=== PATIENT | female | born 1960 | race Caucasian/White ===

== ENCOUNTER 2019-11-29 13:15 | Emergency (ER) | payer OTHER ==
[2019-11-29] MEDS ORDERED: SODIUM CHLORIDE 0.9% 1,000 ML IV ONE ×2 (13:26)
[2019-11-29] MEDS ORDERED: KETOROLAC 30 MG/ML 1 ML VIAL IVP STA (13:26)
[2019-11-29] MEDS ORDERED: ONDANSETRON 4 MG/2 ML VIAL IVP STA (13:26)
[2019-11-29] MEDS ORDERED: HYDROmorphone 1 MG/ML 1 ML SYRINGE IVP STA (13:27)
--- NOTE | 2019-11-29 13:49 | ED ---
Female Urogenital HPI - General Source: patient, family, RN notes reviewed, old records reviewed Mode of arrival: ambulatory Limitations: no limitations <Elaine Nagel - Last Filed: 11/29/19 14:37> <Natalio Rodríguez - Last Filed: 11/29/19 15:28> - General Chief complaint: Urogenital Stated complaint: Kidney stone Time Seen by Provider: 11/29/19 13:23 - History of Present Illness Initial comments: Beverly is a 59-year-old female presents emergency Department with onset of hematuria and left flank pain. Symptoms started around midnight last night the pain went away. She reports that this morning upon awakening it seemed to recur. She states that she has had a history of kidney stones in the past quite some time. She reports that her previous kidney stones did not require surgery for removal. Patient reports no diarrhea. She does complain of some nausea. (Elaine Nagel) - Related Data Home Medications Medication Instructions Recorded Confirmed Atenolol [Tenormin] 25 mg PO DAILY 02/05/15 11/29/19 FLUoxetine HCL [PROzac] 20 mg PO DAILY 02/05/15 11/29/19 LORazepam [Ativan] 0.5 mg PO HS 02/05/15 11/29/19 Aspirin EC [Ecotrin Low Dose] 81 mg PO DAILY 11/29/19 11/29/19 Atorvastatin [Lipitor] 80 mg PO HS 11/29/19 11/29/19 Cholecalciferol [Vitamin D3 (25 2,000 unit PO DAILY 11/29/19 11/29/19 Mcg = 1000 Iu)] Folic Acid 0.8 mg PO DAILY 11/29/19 11/29/19 Previous Rx's Medication Instructions Recorded Ketorolac [Toradol] 10 mg PO Q6HR PRN #15 tab 11/29/19 Metoclopramide HCl [Reglan] 10 mg PO Q6HR PRN #15 tablet 11/29/19 Potassium Chloride ER [K-Dur 20] 20 meq PO BID #8 tab 11/29/19 Allergies Allergy/AdvReac Type Severity Reaction Status Date / Time No Known Allergies Allergy Verified 11/29/19 14:27 Review of Systems ROS Other: All systems not noted in ROS Statement are negative. <Elaine Nagel - Last Filed: 05/07/20 14:37> ROS Other: All systems not noted in ROS Statement are negative. <Natalio Rodríguez - Last Filed: 11/29/19 15:28> ROS Statement: Those systems with pertinent positive or pertinent negative responses have been documented in the HPI. Past Medical History Past Medical History: Hyperlipidemia, Hypertension History of Any Multi-Drug Resistant Organisms: None Reported Past Surgical History: Hysterectomy, Orthopedic Surgery Additional Past Surgical History / Comment(s): lap band Past Psychological History: Anxiety, Depression Smoking Status: Never smoker Past Alcohol Use History: Occasional Past Drug Use History: None Reported <Elaine Nagel - Last Filed: 11/29/19 14:37> General Exam Limitations: no limitations General appearance: alert, in no apparent distress Head exam: Present: atraumatic, normocephalic, normal inspection Eye exam: Present: normal appearance, PERRL, EOMI. Absent: scleral icterus, conjunctival injection, periorbital swelling ENT exam: Present: normal exam, mucous membranes moist Neck exam: Present: normal inspection. Absent: tenderness, meningismus, lymphadenopathy Respiratory exam: Present: normal lung sounds bilaterally. Absent: respiratory distress, wheezes, rales, rhonchi, stridor Cardiovascular Exam: Present: regular rate, normal rhythm, normal heart sounds. Absent: systolic murmur, diastolic murmur, rubs, gallop, clicks GI/Abdominal exam: Present: soft, tenderness (Left CVA tenderness), normal bowel sounds. Absent: distended, guarding, rebound, rigid Extremities exam: Present: normal inspection Back exam: Present: normal inspection Neurological exam: Present: alert, oriented X3, CN II-XII intact Psychiatric exam: Present: normal affect, normal mood <Elaine Nagel - Last Filed: 11/29/19 14:37> Course <Elaine Nagel - Last Filed: 11/29/19 14:37> Vital Signs 11/29/19 11/29/19 11/29/19 13:16 14:01 14:37 Temperature 98.0 F Pulse Rate 98 69 83 Respiratory 20 18 18 Rate Blood Pressure 157/84 146/73 135/79 O2 Sat by Pulse 100 100 98 Oximetry - Reevaluation(s) Reevaluation #1: 11/29/19 14:[address] Rodríguez at 2:30 PM (Elaine Nagel) Medical Decision Making - Lab Data Result diagrams: 11/29/19 13:34 11/29/19 13:34 <Elaine Nagel - Last Filed: 11/29/19 14:37> - Lab Data Result diagrams: 11/29/19 13:34 11/29/19 13:34 - Radiology Data Radiology results: report reviewed (Computed tomography scan of the abdomen pelvis shows obstructive uropathy left upper uterus. Moderate hydronephrosis. There is also a deception and proximal lower abdomen to the gastric antrum.), image reviewed (KUB shows proximal he 5 Casanova calculi left ureter.) <Natalio Rodríguez - Last Filed: 11/29/19 15:28> - Medical Decision Making Patient was reevaluated by myself, Dr. Rodríguez. Patient resting comfortably in bed. Abdomen soft and nontender. Patient states she feels much better. Case was crusted detail with Dr. Giles who did review the films. He feels patient would benefit from endoscopy however this can be done as an outpatient. Patient is updated regarding this as well. Patient is additionally updated regarding potassium level and need to follow-up with both of these as well as urology regarding kidney stone. (Natalio Rodríguez) - Lab Data Lab Results 11/29/19 11/29/19 11/29/19 Range/Units 13:34 13:34 13:34 WBC 6.3 (3.8-10.6) k/uL RBC 4.64 (3.80-5.40) m/uL Hgb 14.4 (11.4-16.0) gm/dL Hct 42.5 (34.0-46.0) % MCV 91.6 (80.0-100.0) fL MCH 31.0 (25.0-35.0) pg MCHC 33.9 (31.0-37.0) g/dL RDW 12.5 (11.5-15.5) % Plt Count 321 (150-450) k/uL Neutrophils % 57 % Lymphocytes % 31 % Monocytes % 7 % Eosinophils % 3 % Basophils % 1 % Neutrophils # 3.6 (1.3-7.7) k/uL Lymphocytes # 1.9 (1.0-4.8) k/uL Monocytes # 0.4 (0-1.0) k/uL Eosinophils # 0.2 (0-0.7) k/uL Basophils # 0.0 (0-0.2) k/uL PT 9.7 (9.0-12.0) sec INR 0.9 (<1.2) APTT 21.1 L (22.0-30.0) sec Sodium 138 (137-145) mmol/L Potassium 2.9 L (3.5-5.1) mmol/L Chloride 105 (98-107) mmol/L Carbon Dioxide 21 L (22-30) mmol/L Anion Gap 12 mmol/L BUN 14 (7-17) mg/dL Creatinine 1.03 (0.52-1.04) mg/dL Est GFR (CKD-EPI)AfAm 68 (>60 ml/min/1.73 sqM) Est GFR (CKD-EPI)NonAf 59 (>60 ml/min/1.73 sqM) Glucose 121 H (74-99) mg/dL Calcium 9.8 (8.4-10.2) mg/dL Total Bilirubin 0.5 (0.2-1.3) mg/dL AST 29 (14-36) U/L ALT 23 (4-34) U/L Alkaline Phosphatase 119 (38-126) U/L Total Protein 7.4 (6.3-8.2) g/dL Albumin 4.4 (3.5-5.0) g/dL Urine Color Urine Appearance (Clear) Urine pH (5.0-8.0) Ur Specific [place] (1.001-1.035) Urine Protein (Negative) Urine Glucose (UA) (Negative) Urine Ketones (Negative) Urine Blood (Negative) Urine Nitrite (Negative) Urine Bilirubin (Negative) Urine Urobilinogen (<2.0) mg/dL Ur Leukocyte Esterase (Negative) Urine RBC (0-5) /hpf Urine WBC (0-5) /hpf Ur Squamous Epith Cells (0-4) /hpf Calcium Oxalate Crystal (None) /hpf Urine Bacteria (None) /hpf Urine Mucus (None) /hpf 11/29/19 Range/Units 14:36 WBC (3.8-10.6) k/uL RBC (3.80-5.40) m/uL Hgb (11.4-16.0) gm/dL Hct (34.0-46.0) % MCV (80.0-100.0) fL MCH (25.0-35.0) pg MCHC (31.0-37.0) g/dL RDW (11.5-15.5) % Plt Count (150-450) k/uL Neutrophils % % Lymphocytes % % Monocytes % % Eosinophils % % Basophils % % Neutrophils # (1.3-7.7) k/uL Lymphocytes # (1.0-4.8) k/uL Monocytes # (0-1.0) k/uL Eosinophils # (0-0.7) k/uL Basophils # (0-0.2) k/uL PT (9.0-12.0) sec INR (<1.2) APTT (22.0-30.0) sec Sodium (137-145) mmol/L Potassium (3.5-5.1) mmol/L Chloride (98-107) mmol/L Carbon Dioxide (22-30) mmol/L Anion Gap mmol/L BUN (7-17) mg/dL Creatinine (0.52-1.04) mg/dL Est GFR (CKD-EPI)AfAm (>60 ml/min/1.73 sqM) Est GFR (CKD-EPI)NonAf (>60 ml/min/1.73 sqM) Glucose (74-99) mg/dL Calcium (8.4-10.2) mg/dL Total Bilirubin (0.2-1.3) mg/dL AST (14-36) U/L ALT (4-34) U/L Alkaline Phosphatase (38-126) U/L Total Protein (6.3-8.2) g/dL Albumin (3.5-5.0) g/dL Urine Color Dark Red Urine Appearance Turbid H (Clear) Urine pH 6.0 (5.0-8.0) Ur Specific [place] 1.022 (1.001-1.035) Urine Protein 2+ H (Negative) Urine Glucose (UA) Negative (Negative) Urine Ketones Trace H (Negative) Urine Blood Large H (Negative) Urine Nitrite Negative (Negative) Urine Bilirubin Negative (Negative) Urine Urobilinogen 2.0 (<2.0) mg/dL Ur Leukocyte Esterase Large H (Negative) Urine RBC >182 H (0-5) /hpf Urine WBC 41 H (0-5) /hpf Ur Squamous Epith Cells 43 H (0-4) /hpf Calcium Oxalate Crystal Many H (None) /hpf Urine Bacteria Few H (None) /hpf Urine Mucus Many H (None) /hpf Disposition <OraliaclaudioElaine - Last Filed: 11/29/19 14:37> Is patient prescribed a controlled substance at d/c from ED?: No Time of Disposition: 15:27 <Natalio Rodríguez - Last Filed: 11/29/19 15:28> Clinical Impression: Ureterolithiasis, Hypokalemia Disposition: HOME SELF-CARE Condition: Stable Instructions (If sedation given, give patient instructions): Kidney Stones (ED) Additional Instructions: Please follow-up with primary care physician and urologist in the next couple days for recheck. Please also follow-up Dr. Giles for endoscopy. Numbers provided. Return for fever, increased pain, vomiting, not tolerating oral intake, worsening symptoms or other concerns. He will need to have your potassium level rechecked within the next week or so. Prescription sent to [facility] in [place] Prescriptions: Potassium Chloride ER [K-Dur 20] 20 meq PO BID #8 tab Metoclopramide HCl [Reglan] 10 mg PO Q6HR PRN #15 tablet PRN Reason: Nausea Ketorolac [Toradol] 10 mg PO Q6HR PRN #15 tab PRN Reason: Pain Referrals: David Givens MD [Primary Care Provider] - 1-2 days Munir Muñoz MD [Medical Doctor] - 1-2 days Keith Telles MD [STAFF PHYSICIAN] - 1-2 days
[2019-11-29 13:51] LABS: Basophils % (A) 1 %; Eosinophils # (A) 0.2 k/uL (0-0.7); Eosinophils % (A) 3 %; HCT 42.5 % (34.0-46.0); HGB 14.4 gm/dL (11.4-16.0); Lymphocytes # (A) 1.9 k/uL (1.0-4.8); Lymphocytes % (A) 31 %; MCHC 33.9 g/dL (31.0-37.0); MCV 91.6 fL (80.0-100.0); Mean Platelet Volume 8.8; Monocytes # (A) 0.4 k/uL (0-1.0); Monocytes % (A) 7 %; Neutrophils # (A) 3.6 k/uL (1.3-7.7); Neutrophils % (A) 57 %; Platelet Count 321 k/uL (150-450); RBC 4.64 m/uL (3.80-5.40); RDW 12.5 % (11.5-15.5); WBC 6.3 k/uL (3.8-10.6)
[2019-11-29 14:01] LABS: Albumin 4.4 g/dL (3.5-5.0); Calcium 9.8 mg/dL (8.4-10.2); Potassium 2.9 mmol/L (3.5-5.1); Total Bilirubin 0.5 mg/dL (0.2-1.3); Total Protein 7.4 g/dL (6.3-8.2)
[2019-11-29 14:16] LABS: INR 0.9 (<1.2); Prothrombin Time 9.7 sec (9.0-12.0)
[2019-11-29] MEDS ORDERED: POTASSIUM CHLORIDE ER 20 MEQ TAB.ER PO STA ×2 (14:30→14:39)
--- NOTE | 2019-11-29 14:30 | XR ---
EXAMINATION TYPE: XR KUB DATE OF EXAM: 11/29/2019 2:16 PM CLINICAL HISTORY: Left flank pain with history of nephrolithiasis TECHNIQUE: Single supine KUB image of the abdomen is obtained. COMPARISON: None. FINDINGS: Gastric lap band is seen with surgical sutures near the gastroesophageal junction. 5 mm mm calculus in the region of the left ureter. Reverse S-shaped scoliosis of the spine. No dilated large or small bowel. Slight right hemidiaphragm elevation. Lung bases are well aerated. IMPRESSION: 5 mm calculus in the region of the left ureter. Ultrasound or CT could assess for obstruc tive uropathy.
[2019-11-29 14:35] LABS: Partial Thromboplastin Time 21.1 sec (22.0-30.0)
--- NOTE | 2019-11-29 14:38 | CT ---
EXAMINATION TYPE: CT abdomen pelvis wo con DATE OF EXAM: 11/29/2019 COMPARISON: X-ray the same date HISTORY: Left flank pain and history of nephrolithiasis CT DLP: 807.4 mGycm Automated exposure control for dose reduction was used. TECHNIQUE: Helical acquisition of images was performed from the lung bases through the pelvis. FINDINGS: Selective intravenous and oral contrast limit evaluation of both the hollow and solid visce ra. LUNG BASES: No significant abnormality is appreciated. LIVER/GB: Unremarkable unenhanced morphology of liver. High density dependent debris in the gallbladd er likely relates to biliary sludge. PANCREAS: No significant abnormality is seen. SPLEEN: Small splenule is seen adjacent to the unremarkable deering spleen. ADRENALS: No significant abnormality is seen. KIDNEYS: There is an obstructing proximal left ureteral 6 mm calculus just distal to the left renal p humble. There is resultant moderate left hydroureteronephrosis. No right-sided hydronephrosis. No piotr tional calculi seen in either kidney. FREE AIR: No free air is visualized ADENOPATHY: Lack of intravenous contrast limits evaluation for adenopathy however no greater than 1 cm short axis lymph node is seen in the abdomen or pelvis. REPRODUCTIVE ORGANS: Uterus appears surgically absent. Ovaries are poorly evaluated on CT. OSSEOUS STRUCTURES: Mild multilevel degenerative change of the spine. BOWEL: Intussusception is seen of the proximal duodenum into the gastric antrum. Gastric lap band an d postsurgical change of the gastric fundus is seen. Few scattered diverticula are seen without peric olonic fat stranding. No dilated large or small bowel. Appendix is air-filled and within normal limit s. OTHER: Atherosclerosis of the abdominal aorta and its branches. IMPRESSION: 1. OBSTRUCTIVE UROPATHY WITH MILLIMETER CALCULUS JUST DISTAL TO THE LEFT RENAL PELVIS AND THE UPPER U RETER CREATING MODERATE LEFT HYDROURETERONEPHROSIS. 2. INTUSSUSCEPTION OF THE PROXIMAL DUODENUM INTO THE GASTRIC ANTRUM. ENDOSCOPY COULD BE CONSIDERED TO EVALUATE FOR A LEAD POINT THIS IS AN UNUSUAL FINDING.
[2019-11-29 15:00] LABS: Appearance,Urine Turbid (Clear); Bacteria,Urine Few /hpf; Bilirubin,Urine Negative (Negative); Blood,Urine Large (Negative); Calcium Oxalate Crystals,Urine Many /hpf; Color,Urine Dark Red; Glucose,Urine (UA) Negative (Negative); Ketones,Urine Trace (Negative); Leukocyte Esterase,Urine Large (Negative); Mucus,Urine Many /hpf; Nitrite,Urine Negative (Negative); Protein,Urine 2+ (Negative); RBC,Urine >182 /hpf (0-5); Specific Gravity,Urine 1.022 (1.001-1.035); Squamous Epithelial Cell,Urine 43 /hpf (0-4); WBC,Urine 41 /hpf (0-5)
[2019-11-29 15:38] VITALS: BP 142/76; PULSE 66; RESP 16; TEMP 98.5
== END 2019-11-29 15:42 | disposition home or self-care (01) ==
LOC: EC 13:15
DX: N13.2 Hydronephrosis with renal and ureteral calculous obstruction (principal); E87.6 Hypokalemia; I10 Essential (primary) hypertension; E78.5 Hyperlipidemia, unspecified; F41.9 Anxiety disorder, unspecified; F32.9 Major depressive disorder, single episode, unspecified; Z79.82 Long term (current) use of aspirin; Z79.899 Other long term (current) drug therapy; Z90.710 Acquired absence of both cervix and uterus; Z98.84 Bariatric surgery status
CPT/HCPCS: 36415; 80053; 85025; 85610; 85730; 81001; 87086; 74018; 74176; 99285; 96374; 96375 ×2; 96361 ×2; J2405; J1885; J1170